=== PATIENT | male | born 2000 | race Two or more races ===

== ENCOUNTER 2022-12-03 09:32 | Outpatient (CLI) | payer OTHER | END 2022-12-03 09:45 | disposition home or self-care (01) | LOC: RAD 09:32 | PROVIDERS: ATTEND General Practice | DX: R09.81 Nasal congestion (principal); J30.9 Allergic rhinitis, unspecified; R51.9 Headache, unspecified; R06.02 Shortness of breath; R30.0 Dysuria; R10.9 Unspecified abdominal pain; R10.2 Pelvic and perineal pain ==

== ENCOUNTER 2024-07-16 14:10 | Outpatient (CLI) | payer OTHER | END 2024-07-16 14:13 | disposition home or self-care (01) | LOC: TOM 14:10 | PROVIDERS: ATTEND General Practice | DX: R31.9 Hematuria, unspecified (principal); R10.9 Unspecified abdominal pain; R19.7 Diarrhea, unspecified; R53.81 Other malaise ==

== ENCOUNTER 2025-03-04 13:23 | Outpatient (CLI) | payer OTHER | END 2025-03-04 13:47 | disposition home or self-care (01) | LOC: RAD 13:23 | PROVIDERS: ATTEND General Practice | DX: R06.02 Shortness of breath (principal); R00.2 Palpitations ==